=== PATIENT | female | born 1950 | race Caucasian/White ===

== ENCOUNTER 2020-03-20 08:58 | Emergency (ER) | payer MEDICARE ==
[~2020-03-20] VITALS: Ht 157.5 cm; Wt 60.6 kg
[2020-03-20 09:03] VITALS: BP 157/81
[2020-03-20] MEDS ORDERED: CARBAMIDE PEROXIDE EAR DROPS 6.5%, 15ML ONE (09:30)
[2020-03-20] MEDS ORDERED: CARBAMIDE PEROXIDE EAR DROPS 6.5%, 15ML RIGHT EAR ONE (09:30)
--- NOTE | 2020-03-20 09:35 | NUR ---
Assumed care of patient. C/O sinus congestion and throat and right ear discomfort x 1 month. Hx seasonal allergies. Patient reports regular afrin use and PO OTC decongestant. PCP prescribed flonase last week and instructed her to stop the afrin, but patient continue to use the afrin until 2-3 days ago and has only used the flonase once. Debrox placed in right ear. Will continue to monitor.
== END 2020-03-20 11:00 | disposition home or self-care (01) ==
LOC: ED 09:47
DX: J30.2 Other seasonal allergic rhinitis (principal); H61.21 Impacted cerumen, right ear; E11.9 Type 2 diabetes mellitus without complications; Z87.891 Personal history of nicotine dependence
CPT/HCPCS: 99283

== ENCOUNTER 2020-03-22 10:19 | Emergency (ER) | payer MEDICARE ==
[~2020-03-22] VITALS: Ht 157.5 cm; Wt 60.3 kg
[2020-03-22 10:22] VITALS: BP 138/93
--- NOTE | 2020-03-22 11:29 | NUR ---
Pt DC'd, all questions answered. Prescription provided.
== END 2020-03-22 11:32 | disposition home or self-care (01) ==
LOC: ED 10:32
DX: J30.1 Allergic rhinitis due to pollen (principal); R19.7 Diarrhea, unspecified; R09.81 Nasal congestion
CPT/HCPCS: 99282

== ENCOUNTER 2020-06-30 08:18 | Emergency (ER) | payer MEDICARE ==
[~2020-06-30] VITALS: Ht 157.5 cm; Wt 56.0 kg
[2020-06-30 08:23] VITALS: BP 131/80
--- NOTE | 2020-06-30 08:34 | NUR ---
SLICK took pt to room, when asked to put a gown on she responded " no, I just have a uti and do not want a pelvic exam it is too painful."
[2020-06-30] MEDS ORDERED: PHENAZOPYRIDINE 200 MG TABLET ONE (09:20)
[2020-06-30] MEDS ORDERED: ONDANSETRON ODT 4 MG ONE (09:20)
--- NOTE | 2020-06-30 09:26 | NUR ---
MEIDCATED PER ORDERS
[2020-06-30] MEDS ORDERED: ONDANSETRON ODT 4 MG PO ONE (09:30)
[2020-06-30] MEDS ORDERED: PHENAZOPYRIDINE 200 MG TABLET PO ONE (09:30)
[2020-06-30 09:42] LABS: MEAN CORPUSCULAR HEMOGLOBIN 28.6 pg (27.0-34.8); MEAN CORPUSCULAR HGB CONC 32.2 g/dL (32.4-35.8); MEAN CORPUSCULAR VOLUME 88.8 fL (80-100); MEAN PLATELET VOLUME 7.8 fL (7.4-10.4); PLATELET COUNT 273 x10^3/uL (130-400); RED BLOOD COUNT 4.59 x10^6/uL (3.82-5.3); RED CELL DISTRIBUTION WIDTH 12.9 % (9.6-15.2)
[2020-06-30 09:46] LABS: MICROSCOPIC AUTO
[2020-06-30 09:53] LABS: ANION GAP 5 mmol/L (5-15); CALCIUM 9.8 mg/dL (8.5-10.1); CHLORIDE 104 mmol/L (98-107); CREATININE 0.75 mg/dL (0.55-1.02)
[2020-06-30 10:16] LABS: BASOPHILS # (AUTO) 0.03 x10^3/uL (0-0.1); BASOPHILS % (AUTO) 0 % (0-1); EOSINOPHILS # (AUTO) 0.02 x10^3/uL (0-0.4); EOSINOPHILS % (AUTO) 0 % (1-7); LYMPHOCYTES # (AUTO) 2.15 x10^3/uL (1-3.4); LYMPHOCYTES % (AUTO) 14 % (22-44); MD SCAN; MONOCYTES # (AUTO) 0.83 x10^3/uL (0.2-0.8); MONOCYTES % (AUTO) 5 % (2-9); NEUTROPHILS # (AUTO) 12.23 x10^3/uL (1.8-6.8); NEUTROPHILS % (AUTO) 80 % (42-75)
--- NOTE | 2020-06-30 10:49 | NUR ---
Patient/Caregiver given discharge instructions and they have confirmed that they understand the instructions. Patient ambulatory with steady gait.
== END 2020-06-30 10:51 | disposition home or self-care (01) ==
LOC: ED 09:18
DX: N30.00 Acute cystitis without hematuria (principal); D72.829 Elevated white blood cell count, unspecified; R39.15 Urgency of urination; E11.9 Type 2 diabetes mellitus without complications; Z87.891 Personal history of nicotine dependence
CPT/HCPCS: 36415; 80048; 81001; 82040; 85025; 87077; 87086; 87186; 99283; Q0162

== ENCOUNTER 2020-07-02 10:16 | Emergency (ER) | payer MEDICARE ==
[~2020-07-02] VITALS: Ht 157.5 cm; Wt 56.7 kg
--- NOTE | 2020-07-02 11:01 | NUR ---
ABD PAIN AND DIARRHEA. STARTED CEFDENIR WEDNESDAY FOR A UTI, PRESCRIBED BY [employer]. PT REFUSED LABS, URINE,STOOLTEST, CT. PT WANTS A NEW ABX. PA NOTIFIED
[2020-07-02 11:29] LABS: BASOPHILS # (AUTO) 0.03 x10^3/uL (0-0.1); BASOPHILS % (AUTO) 0 % (0-1); EOSINOPHILS # (AUTO) 0.09 x10^3/uL (0-0.4); EOSINOPHILS % (AUTO) 1 % (1-7); LYMPHOCYTES # (AUTO) 2.42 x10^3/uL (1-3.4); LYMPHOCYTES % (AUTO) 27 % (22-44); MD NO; MEAN CORPUSCULAR HGB CONC 33.1 g/dL (32.4-35.8); MEAN CORPUSCULAR VOLUME 87.6 fL (80-100); MEAN PLATELET VOLUME 8.1 fL (7.4-10.4); MONOCYTES % (AUTO) 7 % (2-9); NEUTROPHILS # (AUTO) 5.83 x10^3/uL (1.8-6.8); NEUTROPHILS % (AUTO) 65 % (42-75); PLATELET COUNT 305 x10^3/uL (130-400); RED BLOOD COUNT 4.49 x10^6/uL (3.82-5.3); RED CELL DISTRIBUTION WIDTH 12.7 % (9.6-15.2)
--- NOTE | 2020-07-02 11:38 | NUR ---
PT AGREES TO PLAN OF CARE AFTER EVELYN SYED TALKED TO THE PT
[2020-07-02 11:39] LABS: ALANINE AMINOTRANSFERASE 22 U/L (12-78); ALBUMIN 3.9 g/dL (3.4-5.0); ANION GAP 6 mmol/L (5-15); CALCIUM 9.3 mg/dL (8.5-10.1); CHLORIDE 104 mmol/L (98-107); CREATININE 0.71 mg/dL (0.55-1.02)
--- NOTE | 2020-07-02 11:39 | NUR ---
PT IN ISOLATION FOR C-DIFF R/O
[2020-07-02 11:41] LABS: ALKALINE PHOSPHATASE 61 U/L (45-117); BILIRUBIN,TOTAL 0.2 mg/dL (0.2-1.0); TOTAL PROTEIN 8.6 g/dL (6.4-8.2)
[2020-07-02 12:07] LABS: MICROSCOPIC AUTO
[2020-07-02] MEDS ORDERED: OMNIPAQUE 350 MG/ML, 100ML BOTTLE ONE (12:13)
[2020-07-02 13:21] VITALS: BP 135/78
== END 2020-07-02 13:23 | disposition home or self-care (01) ==
LOC: ED 11:32
DX: R19.7 Diarrhea, unspecified (principal); R10.2 Pelvic and perineal pain; D25.9 Leiomyoma of uterus, unspecified; E11.9 Type 2 diabetes mellitus without complications
CPT/HCPCS: 36415; 74177; 80053; 81001; 85025; 87086; 99285; Q9967

== ENCOUNTER → 2020-07-08 | Outpatient (CLI) | payer MEDICARE ==
[~2020-07-08] MED LIST: GADOTERATE 10 MMOL/20 ML VIAL ONE
== END | disposition home or self-care (01) ==
LOC: RAD 06:26
PROVIDERS: ATTEND Obstetrics & Gynecology Female Pelvic Medicine and Reconstructive Surgery
DX: K80.20 Calculus of gallbladder without cholecystitis without obstruction (principal); M51.36 Other intervertebral disc degeneration, lumbar region; N83.312 Acquired atrophy of left ovary; N83.311 Acquired atrophy of right ovary; N85.4 Malposition of uterus; D25.9 Leiomyoma of uterus, unspecified; D28.7 Benign neoplasm of other specified female genital organs
CPT/HCPCS: 72197; 74183; A9575

== ENCOUNTER → 2020-08-07 | Outpatient (CLI) | payer MEDICARE ==
[~2020-08-07] MED LIST changes: +ASCO500T8 PO; +CALC600T60 PO; +CYAN100014 PO; -GADOTERATE 10 MMOL/20 ML VIAL ONE; +MAGN400C PO; +MULT-449 PO
[2020-08-07 10:13] LABS: MICROSCOPIC AUTO
== END | disposition home or self-care (01) ==
LOC: STAR 08:24
PROVIDERS: ATTEND Obstetrics & Gynecology Female Pelvic Medicine and Reconstructive Surgery
DX: Z01.818 Encounter for other preprocedural examination (principal); N39.3 Stress incontinence (female) (male); N81.10 Cystocele, unspecified; R10.2 Pelvic and perineal pain; E27.9 Disorder of adrenal gland, unspecified; I49.8 Other specified cardiac arrhythmias; Z20.828 Contact with and (suspected) exposure to other viral communicable diseases
CPT/HCPCS: 36415; 81001; 87086; 87635; 93005

== ENCOUNTER 2020-08-12 06:26 | Day surgery (SDC) | payer MEDICARE ==
[~2020-08-12] VITALS: Ht 157.5 cm; Wt 55.2 kg
[2020-08-12] MEDS ORDERED: NEOMY/POLYMYXIN B GU IRR. 1 ML ONE (06:40)
[2020-08-12] MEDS ORDERED: BUPIVACAINE/PF 0.25% ONE (06:40)
[2020-08-12] MEDS ORDERED: EPINEPHRINE 1 MG/ML, 1ML ONE (06:48)
[2020-08-12 07:27] VITALS: BP 144/82
[2020-08-12] MEDS ORDERED: CHLORHEXIDINE 15 ML UDC MM ONE (07:30)
[2020-08-12] MEDS ORDERED: LACTATED RINGERS 1,000 ML IV SCH (07:30)
[2020-08-12] MEDS ORDERED: CHLORHEXIDINE 15 ML UDC ONE (07:32)
[2020-08-12] MEDS ORDERED: GLYCOPYRROLATE 0.2MG/1ML, 5ML ONE (07:54)
[2020-08-12] MEDS ORDERED: KETOROLAC 30 MG/1 ML ONE (07:54)
[2020-08-12] MEDS ORDERED: ROCURONIUM 10MG/ML,5ML ONE (07:54)
[2020-08-12] MEDS ORDERED: CEFAZOLIN 1,000 MG ONE (07:54)
[2020-08-12] MEDS ORDERED: ONDANSETRON 2MG/ML, 2ML ONE (07:54)
[2020-08-12] MEDS ORDERED: PROPOFOL 10 MG/ML, 20ML ONE (07:54)
[2020-08-12] MEDS ORDERED: DEXAMETHASONE 4 MG/ML, 1ML ONE (07:54)
[2020-08-12] MEDS ORDERED: NEOSTIGMINE 1 MG/ML, 10ML ONE (07:54)
[2020-08-12] MEDS ORDERED: MIDAZOLAM 1 MG/ML, 2ML ONE (07:55)
[2020-08-12] MEDS ORDERED: FENTANYL PF 100 MCG/2ML ONE ×2 (07:56→11:24)
[2020-08-12] MEDS ORDERED: hydrALAzine 20 MG/ML, 1ML IV PRN (08:30)
[2020-08-12] MEDS ORDERED: ONDANSETRON 2MG/ML, 2ML IVPush PRN (08:30)
[2020-08-12] MEDS ORDERED: OXYcodone 5 MG/5 ML ORAL.SOL UDC PO PRN (08:30)
[2020-08-12] MEDS ORDERED: DIAZEPAM 5 MG/ML, 2ML IVPush PRN (08:30)
[2020-08-12] MEDS ORDERED: MEPERIDINE/PF 25MG/0.5ML IVPush PRN (08:30)
[2020-08-12] MEDS ORDERED: DIPHENHYDRAMINE 50 MG/ML, 1ML IVPush PRN (08:30)
[2020-08-12] MEDS ORDERED: ACETAMINOPHEN 325 MG TABLET PO PRN (08:30)
[2020-08-12] MEDS ORDERED: HYDROmorphone 1 MG/ML, 1ML INJ IVPush PRN (08:30)
[2020-08-12] MEDS ORDERED: FENTANYL PF 100 MCG/2ML IV PRN (08:30)
[2020-08-12] MEDS ORDERED: LABETALOL 5MG/ML, 20ML IV PRN (08:30)
[2020-08-12] MEDS ORDERED: PROMETHAZINE 25 MG/ML, 1ML IVPush PRN (08:30)
[2020-08-12] MEDS ORDERED: ACETAMINOPHEN 650 MG/20.3 ML UDC ONE (11:24)
[2020-08-12] MEDS ORDERED: OXYcodone 5 MG/5 ML ORAL.SOL UDC ONE (11:25)
== END 2020-08-12 13:40 | disposition home or self-care (01) ==
LOC: OUT 06:26
PROVIDERS: ATTEND Obstetrics & Gynecology Female Pelvic Medicine and Reconstructive Surgery
DX: N81.89 Other female genital prolapse (principal); N81.5 Vaginal enterocele; N39.46 Mixed incontinence; N81.6 Rectocele; D25.9 Leiomyoma of uterus, unspecified; R10.2 Pelvic and perineal pain; K21.9 Gastro-esophageal reflux disease without esophagitis; F10.11 Alcohol abuse, in remission; R19.09 Other intra-abdominal and pelvic swelling, mass and lump; Z98.890 Other specified postprocedural states; Z79.899 Other long term (current) drug therapy; Z72.89 Other problems related to lifestyle; Z87.891 Personal history of nicotine dependence
CPT/HCPCS: 57265; 57282; 57288; 58552; 88307; C1771; J0171; J0690; J1100; J1885; J2250; J2405; J2704; J2710; J3010; J7120

== ENCOUNTER → 2021-05-09 | Outpatient (CLI) | payer MEDICARE | END | disposition home or self-care (01) | LOC: CFH 06:42 | PROVIDERS: ATTEND Internal Medicine Cardiovascular Disease | DX: R00.2 Palpitations (principal) | CPT/HCPCS: 93306 ==